=== PATIENT | female | born 1965 | race Two or more races ===

== ENCOUNTER 2022-08-28 14:12 | Emergency (ER) | payer BC, OTHER ==
[~2022-08-28] VITALS: Ht 152.4 cm; Wt 56.7 kg
--- NOTE | 2022-08-28 14:37 | NUR ---
bibs w/ c/o sob and coughing since last night, chest pressure. to er bed 11.
--- NOTE | 2022-08-28 14:52 | NUR ---
/PA AT BEDSIDE FOR EVAL
--- NOTE | 2022-08-28 15:05 | NUR ---
TECH AT BEDSIDE FOR EKG
--- NOTE | 2022-08-28 15:15 | NUR ---
phleb at bedside for blood draw
--- NOTE | 2022-08-28 15:23 | NUR ---
rapid flu and covid swabs obtained and sent to lab
[2022-08-28 15:26] LABS: BASOPHILS % (AUTO) 0.4 % (0.0-2.0); EOSINOPHILS % (AUTO) 4.2 % (0.0-6.0); HEMATOCRIT 40 % (33-45); LYMPHOCYTES # (AUTO) 0.9 K/uL (0.8-4.8); LYMPHOCYTES % (AUTO) 7.7 % (20.0-44.0); MEAN CORPUSCULAR HGB CONC 33 g/dl (31.0-36.0); MEAN CORPUSCULAR VOLUME 93 fL (82-100); MONOCYTES # (AUTO) 0.5 K/uL (0.1-1.30); NEUTROPHILS # (AUTO) 9.5 K/uL (1.8-8.9); NEUTROPHILS % (AUTO) 83.7 % (43.0-81.0); PLATELET COUNT (AUTO) 218 K/uL (150-450); RED BLOOD CELL COUNT(AUTO) 4.27 MIL/uL (4.0-5.2); WHITE BLOOD COUNT (AUTO) 11.3 K/uL (4.3-11.0)
[2022-08-28] MEDS ORDERED: IPRATROPIUM NEB FS 0.5 MG/2.5 ML AMPUL.NEB NEB ONE (15:30)
[2022-08-28] MEDS ORDERED: methylPREDNISolone SOD SUCC 125 MG/2ML VIAL IV ONE (15:30)
[2022-08-28] MEDS ORDERED: ALBUTEROL FS 2.5 MG/3 ML VIAL.NEB CONTNEB ONE (15:30)
[2022-08-28 15:55] LABS: CALCIUM, SERUM 8.8 mg/dL (8.5-10.1); CARBON DIOXIDE 25 mmol/L (21-32); CHLORIDE 101 mmol/L (98-107); CREATININE 0.8 mg/dL (0.6-1.3); GLUCOSE 128 mg/dL (74-106); POTASSIUM 3.8 mmol/L (3.5-5.1); SODIUM SERUM 135 mmol/L (136-145); UREA NITROGEN, BLOOD 5 mg/dL (7-18)
--- NOTE | 2022-08-28 16:00 | NUR ---
breathing tx given by rt at bedside
[2022-08-28] MEDS ORDERED: ALBUTEROL FS 2.5 MG/3 ML VIAL.NEB ONE (16:15)
[2022-08-28] MEDS ORDERED: IBUP-1955 PO (16:50)
[2022-08-28] MEDS ORDERED: BENZ-13 PO (16:50)
[2022-08-28] MEDS ORDERED: PRED20TA PO (16:50)
[2022-08-28] MEDS ORDERED: ALBU18HF2 INH (16:50)
--- NOTE | 2022-08-28 17:20 | NUR ---
IV removed. Catheter intact and site benign. Pressure and 4x4 applied to site. No bleeding noted.
--- NOTE | 2022-08-28 17:24 | NUR ---
Patient discharged to home in stable condition. Written and verbal after care instructions given. Patient verbalizes understanding of instruction.
[2022-08-28 17:25] VITALS: BP 120/62
== END 2022-08-28 17:26 | disposition home or self-care (01) ==
LOC: ER 14:15
DX: J40 Bronchitis, not specified as acute or chronic (principal); J06.9 Acute upper respiratory infection, unspecified; B97.89 Other viral agents as the cause of diseases classified elsewhere; Z20.822 Contact with and (suspected) exposure to COVID-19; M81.0 Age-related osteoporosis without current pathological fracture
CPT/HCPCS: 99285; 96374; 71045; 87426; 93005; 87804 ×2; 85025; 80048; 36415; 84484; 83880; 94644; J2930; C9803